=== PATIENT | male | born 1965 | race Caucasian/White ===

== ENCOUNTER 2018-01-18 05:14 | Emergency (ER) | payer MEDICARE ==
[~2018-01-18] VITALS: Ht 165.1 cm; Wt 84.1 kg
[2018-01-18 06:40] VITALS: BP 147/94
[2018-01-18] MEDS ORDERED: KETOROLAC TROMETHAMINE 30 MG/ML VIAL IM ONE (07:15)
== END 2018-01-18 07:30 | disposition home or self-care (01) ==
LOC: EMS 05:15
DX: K04.7 Periapical abscess without sinus (principal); F17.210 Nicotine dependence, cigarettes, uncomplicated
CPT/HCPCS: 96372; 99283; J1885